=== PATIENT | male | born 1950 | race Caucasian/White ===

== ENCOUNTER 2017-06-11 15:47 | Emergency (ER) | payer SELFPAY ==
[~2017-06-11] VITALS: Ht 180.3 cm; Wt 72.1 kg
[2017-06-11 15:54] VITALS: Ht 180.3 cm; Wt 72.1 kg
[2017-06-11 16:31] LABS: BASOPHIL % 0.2 % (0-2); PLATELET COUNT 231 x10^3mcL (130-400); RED CELL DISTRIBUTION WIDTH 14.5 % (11.5-14.5)
[2017-06-11 16:50] LABS: ALBUMIN 3.6 g/dL (3.4-5.0); ALKALINE PHOSPHATASE 72 U/L (46-116); ALT/SGPT 21 U/L (16-63); AST/SGOT 12 U/L (15-37); CALCIUM 10.6 mg/dL (8.5-10.1); CARBON DIOXIDE 28.4 mmol/L (21-32); CHLORIDE SERUM 107 mmol/L (98-107); CREATININE SERUM 1.5 mg/dL (0.7-1.3); GFR1 50 mL/min; GLUCOSE SERUM 235 mg/dL (74-106); SODIUM SERUM 148 mmol/L (136-145); TOTAL PROTEIN, SERUM 7.9 g/dL (6.4-8.2)
[2017-06-11 17:05] LABS: microscopic required? NO
[2017-06-11 17:16] LABS: urine erythrocyte NEGATIVE (NEGATIVE)
[2017-06-11 17:27] LABS: AMPHETAMINE QUAL UR NONE DETECTED (NEG <=1000)
[2017-06-11] MEDS ORDERED: METFORMIN HYDR500 M1 PO (17:53)
[2017-06-11] MEDS ORDERED: ASPIR 8181 MG PO (17:54)
[2017-06-11] MEDS ORDERED: LIPI10 PO (17:54)
[2017-06-11 19:55] LABS: MAGNESIUM 1.8 mg/dL (1.8-2.4); PHOSPHOROUS 3.2 mg/dL (2.5-4.9); T3 TOTAL 1.11 ng/mL
[2017-06-11 19:56] LABS: CHOLESTEROL/HDL RATIO 4.9
[2017-06-11 20:05] LABS: FREE T4 1.46 ng/dL (0.76-1.46); FREE THYROXINE INDEX 3.6 ug/dL (1.4-4.5); T4(THYROXINE) 10.9 ug/dL (4.7-13.3)
[2017-06-11 21:55] VITALS: BP 148/77
[2017-06-11 22:43] LABS: CARBON DIOXIDE 27.4 mmol/L (21-32); CREATININE SERUM 1.3 mg/dL (0.7-1.3)
== END 2017-06-11 22:42 | disposition left against medical advice (07) ==
LOC: ED 15:47
PROVIDERS: Emergency Medicine; Family Medicine; Family Medicine Sports Medicine
DX: G93.40 Encephalopathy, unspecified (principal); E87.6 Hypokalemia; E87.2 Acidosis; E86.0 Dehydration; N28.9 Disorder of kidney and ureter, unspecified; E11.9 Type 2 diabetes mellitus without complications; E78.5 Hyperlipidemia, unspecified; I44.7 Left bundle-branch block, unspecified
CPT/HCPCS: 36600; 83880; 84439; G0480; J3480; J7030